=== PATIENT | female | born 1965 | race Native Hawaiian/Other Pacific Islander ===

== ENCOUNTER 2017-07-05 14:17 | Outpatient (CLI) | payer BC ==
[2017-07-05 15:27] LABS: PLATELET COUNT 259 K/uL (152-353)
== END 2017-07-05 22:07 | disposition home or self-care (01) ==
LOC: LABW 14:17
PROVIDERS: Internal Medicine
DX: J01.00 Acute maxillary sinusitis, unspecified (principal); R05 Cough
CPT/HCPCS: 36415; 85027; 86615